=== PATIENT | male | born 1950 | race Caucasian/White ===

== ENCOUNTER 2023-05-11 07:51 | Day surgery (SDC) | payer OTHER, SELFPAY ==
[2023-05-11 08:01] VITALS: BMI 31.9
[2023-05-11 08:28] LABS: Glucose, Whole Blood 137 mg/dL (60-115)
[2023-05-11 08:34] VITALS: BP 136/62; PULSE 67; RESP 18; TEMP 36.1; O2SAT 99
--- NOTE | 2023-05-11 08:52 | HO.ANESPROP2 ---
HPI - Anesthesia Eval Consult details Narrative: 73 M for EGD CAD s/p stent Denies any chest pain , SOB PMFSH Past Medical History Medical History (Updated 05/11/23 @ 08:03 by Gene Nogueira RN) Kidney stones Esophageal stricture CAD (coronary artery disease) HLD (hyperlipidemia) HTN (hypertension) Diabetes Family History Family history of problems with anesthesia: No Surgical History Surgical History (Updated 05/10/23 @ 12:12 by Lucy Eller) H/O colonoscopy History of surgery on lower extremity History of ankle surgery History of Problems with Anesthesia: No Social History Are you a primary hospice spiritual care coordinator to a significant other at home: No Do you presently have visiting nurse or other home services: No Patient Tobacco Use Status: Former Tobacco user Quit Date: 1977 Tobacco use type: Cigarette Smoked in Last 30 Days: No Use of substances other than those prescribed or required for medical reasons: Yes Substance Use Type Other:: EDIBLES Substance Use Frequency: Occasionally Have you been hit, kicked, punched, or otherwise hurt by someone within the past year? If so, by whom?: No Are you DNR?: No Advance Directives: No Advance Directives Information Provided: Yes Recently lost weight without trying: No Eating poorly because of decreased appetite: No Nutrition Risks: No Nutritional Risk Poor oral hygiene: No Meds Allergies Allergy/AdvReac Type Severity Reaction Status Date / Time No Known Allergies Allergy Verified 05/10/23 11:37 Home Medications Medication Instructions Recorded Confirmed Last Taken Type Lantus U-100 Insulin 30 05/10/23 05/10/23 History Novolog U-100 Insulin aspart 05/10/23 05/10/23 History empagliflozin 25 mg 05/10/23 05/09/23 History hydrochlorothiazide 12.5 mg 05/10/23 05/09/23 History lisinopril 40 mg 05/10/23 05/09/23 History rosuvastatin 40 mg 05/10/23 05/09/23 History tadalafil 20 mg 05/10/23 05/04/23 History tramadol 50 mg 05/10/23 Unknown History Exam Exam Date and Time: May 11, 2023 0852 Height,Weight and Vital Signs: Height 5 ft 8 in Weight 95.254 kg Last Vital Signs Temp 97 F 05/11/23 08:34 Pulse 67 05/11/23 08:34 Resp 18 05/11/23 08:34 BP 136/62 05/11/23 08:34 Pulse Ox 99 05/11/23 08:34 O2 Del Method Room Air 05/11/23 08:34 Pertinent Lab Results Pertinent Lab Results: Laboratory Tests 05/11/23 08:24 POC Glucose 137 H Airway Mallampati Class: IV Loose/Missing/Broken Teeth: Yes Assessment and Plan Assessment Anesthesia Assessment: Anesthesia Plan Discussed and Chart Reviewed Final Anesthetic Review Family History of Problems with Anesthesia: No History of Problems with Anesthesia: No NPO: Yes ASA Class: III Final Preanesthetic Review: Meds/Allgs Chart Reviewed, Consent Obtained/Reviewed and Anes Risks/Benef Reviewed Patient Risk: Intermediate Procedure Risk: Intermediate Anesthetic Plan Anesthetic Plan: MAC: and Agree w/ Assess. and Plan Disposition: Standard PACU
--- NOTE | 2023-05-11 09:43 | PM.OP ---
Brief Operative Note Date of Service: 05/11/23 Pre-op diagnosis: Dysphagia Post-op diagnosis: other (GERD, Hiatal hernia, Gastritis, Duodenitis) Procedure: EGD with Balloon dilation with a 19 to 20mm balloon, and biopsies Surgeon: Rodri Marks MD Anesthesia: MAC Was an Supervisor Shuttle Veneering used for this Procedure?: No Estimated blood loss (mL): 2.0 Pathology: other (A. Gastric antrum B. EG Junction at 38cm) Condition: stable Disposition: PACU
[2023-05-11 09:45] VITALS: BP 116/60; PULSE 73; RESP 13; TEMP 36.7; O2SAT 99
--- NOTE | 2023-05-11 09:56 | OP_ITS ---
DATE OF SERVICE: 05/11/2023 SURGEON: Rodri Marks MD INDICATIONS: The patient presents for evaluation of intermittent dysphagia. Full consent was obtained from him for this, including risks of bleeding and perforation. PREOPERATIVE DIAGNOSIS: Dysphagia. POSTOPERATIVE DIAGNOSIS: PROCEDURE PERFORMED: Esophagogastroduodenoscopy with balloon dilation of gastroesophageal junction and biopsies. ESTIMATED BLOOD LOSS: COMPLICATIONS: ANESTHESIA: Monitored anesthesia care. ASSISTANTS: SPECIMENS: POSTOPERATIVE DIAGNOSES: Dysphagia, hiatal hernia, gastroesophageal reflux, duodenitis, and gastritis. DESCRIPTION OF PROCEDURE: The patient was placed in the left lateral decubitus position. The Olympus video gastroscope was passed in the posterior oropharynx and upper esophagus under direct vision. The scope was passed slowly to the distal esophagus. The gastroesophageal junction appeared at 38 cm. There was some slight irregularity, consistent with reflux and possibly less than 1 cm small areas of Lane mucosa. There was no esophagitis nor any lesions. There was no sign of any stricture. The distal esophagus was somewhat tortuous, but the scope easily entered the stomach. There was a small hiatal hernia. The scope was advanced to the pylorus and the duodenum was cannulated to the descending portion. The duodenum including the bulb was carefully inspected. There was some duodenitis in the duodenal bulb, but no evidence of any ulceration nor mass. The scope was withdrawn back to the stomach. The gastric antrum and body had some areas of erythema and edema, but no ulceration nor erosions. There was good peristalsis. The scope was retroflexed visualizing the proximal stomach carefully, which appeared normal, without any sign of mass or ulceration. The scope was straightened. Biopsies were obtained from the gastric antrum. The scope was withdrawn back to the esophagus. I did use a [employer] incremental balloon to dilate the gastroesophageal junction from 19 mm to 20 mm, at the recommended pressure for 60 seconds each with some minimal heme noted post dilation. However, the balloon itself pulled easily into and out of the stomach in the fully inflated position. I did obtain some biopsies from the gastroesophageal junction at 38 cm as well. Proximal to the gastroesophageal junction, the esophageal mucosa appeared normal. There was no evidence of any proximal esophageal rings nor webs. The scope was withdrawn from the patient. He tolerated the procedure well and was returned to the recovery area in stable condition. IMPRESSION: 1. Hiatal hernia, gastroesophageal reflux. 2. Status post balloon dilation of gastroesophageal junction. 3. Duodenitis. 4. Gastritis. PLAN: The results of the biopsies will be checked. Given the findings and his history, I shall start him on omeprazole 40 mg daily to see if by treating any component of acid reflux this could help his swallowing in regard to decreasing any component of acid-induced esophageal spasm. He will be seen in followup. If symptoms persist, he may need further evaluation with a barium swallow and/or esophageal motility studies. He was advised to resume his aspirin tomorrow. MD MARCELO Gomez/RAFAELA / [id number] MTDD
[2023-05-11 10:00] VITALS: BP 124/68; PULSE 65; RESP 16; TEMP 36.2; O2SAT 99
[2023-05-11 10:10] LABS: Glucose, Whole Blood 147 mg/dL (60-115)
== END 2023-05-11 10:35 | disposition home or self-care (01) ==
PROVIDERS: PCP Internal Medicine; Visit Provider Internal Medicine
PROC: (CPT 43249; principal; 2023-05-11 09:00)
DX: R13.19 Other dysphagia (principal); K21.9 Gastro-esophageal reflux disease without esophagitis; K22.70 Barrett's esophagus without dysplasia; K29.50 Unspecified chronic gastritis without bleeding; K29.80 Duodenitis without bleeding; K44.9 Diaphragmatic hernia without obstruction or gangrene; I25.10 Atherosclerotic heart disease of native coronary artery without angina pectoris; Z95.5 Presence of coronary angioplasty implant and graft; I10 Essential (primary) hypertension; E78.5 Hyperlipidemia, unspecified; E11.9 Type 2 diabetes mellitus without complications; Z79.4 Long term (current) use of insulin; Z79.82 Long term (current) use of aspirin; Z79.899 Other long term (current) drug therapy
CPT/HCPCS: 43249; 43239; 82947; 88305; 88342; C1726; J3010

== ENCOUNTER 2024-01-04 08:53 | Outpatient (REF) | payer OTHER, SELFPAY ==
--- NOTE | ~2024-01-04 | FL_ITS ---
EXAMINATION: XR FLUOROSCOPY UPPER GI WITH AIR CLINICAL INFORMATION: Reflux COMPARISON: None TECHNIQUE: Fluoroscopic air contrast upper GI examination was performed utilizing standard techniques with thin and thick barium and effervescent granules. Numerous spot images were obtained. FINDINGS: Lateral cine images of the oropharynx and hypopharynx demonstrate normal swallow mechanism with normal epiglottic inversion and soft palate elevation. Mild pooling of contrast present in the vallecula and piriform sinuses. No tracheal penetration, glottic or subglottic aspiration identified. No nasopharyngeal reflux present. Hypopharyngeal structures appear normal without evidence of mass or diverticulum. Mild cricopharyngeal achalasia is present. Dual and single contrast images of the esophagus demonstrate normal caliber, contour, and mucosal pattern. No evidence of stricture, mass, or ulcerations identified. The patient swallowed the barium tablet without any difficulty. The tablet passed into the stomach without any stasis. Esophageal peristalsis is moderately disorganized. A small type I hiatal hernia is present. Gastroesophageal reflux is seen up to the aortic arch. Dual contrast and single contrast images of the stomach demonstrated a normal contour. The gastric rugal folds have a severely thickened appearance, suggesting gastritis. No masses or ulcerations are seen. Contrast freely passed into the gastric antrum and duodenal bulb without delay. Single and air-contrast images of the duodenal bulb demonstrate no abnormality. The duodenal sweep has a normal appearance, course, and mucosal fold appearance. The imaged proximal jejunum has a normal fold pattern and caliber. Numerous flowing disc osteophytes are present throughout the cervical and thoracic spine, with relative preservation of the disc spaces, suggesting a diagnosis of DISH. Ventral disc osteophytes present C3-C4 and C4-C5 minimally indent upon the hypopharyngeal structures. The aortic arch is calcified and ectatic. FLUOROSCOPY TIME: 4 minutes 11 seconds Number of Spot Images: 11 Number of Cine: 14 DOSE AREA PRODUCT: 3153 uGy-m2 (microgray-meter squared) FL/FL barium swallow IMPRESSION: 1. Mild cricopharyngeal achalasia. 2. Significantly disorganized esophageal peristalsis. Corkscrew appearance at times. 3. Small type I hiatal hernia. 4. Moderate gastroesophageal reflux. 5. Severely thickened appearance of the gastric rugal folds that likely represents gastritis. Recommend correlation with EGD. 6. Skeletal findings suggesting DISH. This procedure was performed by Aidan Iqbal PA-C, and supervised by Dr. Ash
== END 2024-01-04 08:54 | disposition home or self-care (01) ==
LOC: HO.XRAY 08:53
PROVIDERS: Visit Provider Internal Medicine
DX: R13.19 Other dysphagia (principal); K21.9 Gastro-esophageal reflux disease without esophagitis
CPT/HCPCS: 74220

== ENCOUNTER → 2024-01-04 08:58 | Outpatient (BNV) | payer OTHER, SELFPAY | PROVIDERS: Visit Provider Physician Assistant Surgical | DX: K21.9 Gastro-esophageal reflux disease without esophagitis (principal) | CPT/HCPCS: 74246 ==